=== PATIENT | male | born 1960 | race Native Hawaiian/Other Pacific Islander ===

== ENCOUNTER 2017-01-16 21:44 | Observation (INO) | payer OTHER ==
[~2017-01-16] VITALS: Ht 170.2 cm; Wt 70.5 kg
[2017-01-16 22:04] VITALS: BP 139/79; TEMP 98.6
[2017-01-16 23:01] LABS: PLATELET COUNT 325 K/uL (142-355)
[2017-01-16 23:09] LABS: POTASSIUM 3.7 mmol/L (3.6-5.2); SODIUM 136 mmol/L (136-145)
[2017-01-17 01:02] VITALS: BP 117/65; TEMP 98.4; Ht 170.2 cm; Wt 70.5 kg
[2017-01-17 04:00] VITALS: BP 109/66; TEMP 97.9
[2017-01-17 08:00] VITALS: BP 112/68; TEMP 97.3
[2017-01-17 12:00] VITALS: BP 111/68; TEMP 97.5
[2017-01-17 16:00] VITALS: BP 106/64; TEMP 97.4
[2017-01-17 20:00] VITALS: BP 115/53; TEMP 97.5
[2017-01-18 00:05] VITALS: BP 117/60; TEMP 97.5
--- NOTE | 2017-01-18 03:07 | NUR ---
01/18/17 0300 PT C/O OF INDIGESTION MEDICATION GIVEN ALSO MEDICATION GIVEN FOR COUGH.CC
[2017-01-18 04:00] VITALS: BP 109/69; TEMP 97.5
[2017-01-18 05:40] LABS: POTASSIUM 4.4 mmol/L (3.6-5.2); SODIUM 135 mmol/L (136-145)
[2017-01-18 06:09] LABS: PLATELET COUNT 295 K/uL (142-355)
[2017-01-18 08:00] VITALS: BP 111/60; TEMP 97.9
[2017-01-18 12:00] VITALS: BP 109/68; TEMP 97.9
[2017-01-18 16:00] VITALS: BP 118/66; TEMP 97.7
--- NOTE | 2017-01-18 16:05 | NUR ---
@ 1522 PT C/O NAUSEA AND INDIGESTION, ZOFRAN 4MG PO GIVEN. @ 1600 PT RESTING QUIETLY WITHOUT C/O, NAD NOTED
[2017-01-18 20:00] VITALS: BP 137/67; TEMP 97
[2017-01-19] VITALS: BP 139/70; TEMP 97
[2017-01-19 04:00] VITALS: BP 125/78; TEMP 97.8
[2017-01-19 05:19] LABS: PLATELET COUNT 320 K/uL (142-355)
[2017-01-19 05:34] LABS: POTASSIUM 5.1 mmol/L (3.6-5.2); SODIUM 140 mmol/L (136-145)
[2017-01-19 08:00] VITALS: BP 120/76; TEMP 98.6
[2017-01-19 12:00] VITALS: BP 121/75; TEMP 98
--- NOTE | 2017-01-19 16:02 | NUR ---
PT DISCHARGED TO HOME WITH FAMILY, DISCHARGE INSTRUCTIONS AND PRESCRIPTIONS GIVEN TO PATIENT, IV D/C'D TIP INTACT, NO REDNESS, SWELLING OR EDEMA NOTED, PT AMBULATED TO VEHICLE WITH FAMILY BY SIDE, NAD NOTED.
== END 2017-01-19 15:45 | disposition home or self-care (01) ==
LOC: ED 21:44 → MED/SURG 01-17 00:05
PROVIDERS: Emergency Medicine; ADMIT Emergency Medicine
DX: J44.1 Chronic obstructive pulmonary disease with (acute) exacerbation (principal); D72.828 Other elevated white blood cell count; R09.02 Hypoxemia
CPT/HCPCS: 36415; 36600; 80048; 80053; 82550; 82805; 83735; 83880; 84484; 85027; 90658; 90732; 93005; 94640; 94664; 94760; 96367; 96372; 96374; 96375; 99220; 99284; G0378; J1650; J2405; J2930

== ENCOUNTER 2017-05-26 19:34 | Observation (INO) | payer OTHER ==
[~2017-05-26] VITALS: Ht 170.2 cm; Wt 73.0 kg
[2017-05-26 19:55] VITALS: BP 129/79; TEMP 98.8
[2017-05-26 20:39] LABS: PLATELET COUNT 245 K/uL (142-355)
[2017-05-26 21:37] LABS: POTASSIUM 3.4 mmol/L (3.6-5.2); SODIUM 131 mmol/L (136-145)
[2017-05-26 22:01] VITALS: BP 114/62
[2017-05-26] MEDS ORDERED: BEVESPI AEROSPH1 AER IN (22:08)
[2017-05-26] MEDS ORDERED: BREO ELLIPTA 101 INH IN (22:09)
[2017-05-26] MEDS ORDERED: IPRASOL5 IN (22:11)
[2017-05-26] MEDS ORDERED: ALBUTERO2 IN (22:13)
[2017-05-26 23:04] VITALS: BP 110/72; TEMP 98.3; Ht 170.2 cm; Wt 73.0 kg
[2017-05-27] VITALS: BP 141/73; TEMP 97.6
[2017-05-27 04:00] VITALS: BP 123/81; TEMP 97.7
[2017-05-27 05:01] LABS: PLATELET COUNT 201 K/uL (142-355); POTASSIUM 3.6 mmol/L (3.6-5.2); SODIUM 133 mmol/L (136-145)
[2017-05-27 07:55] VITALS: BP 120/75; TEMP 98
[2017-05-27 11:59] VITALS: BP 129/81; TEMP 97.6
[2017-05-27 16:00] VITALS: BP 139/71; TEMP 97.7
[2017-05-27 20:20] VITALS: BP 128/60; TEMP 98.5
[2017-05-28] VITALS: BP 127/85; TEMP 97.5
[2017-05-28 04:00] VITALS: BP 131/81; TEMP 97.6
[2017-05-28 05:33] LABS: PLATELET COUNT 211 K/uL (142-355)
[2017-05-28 05:46] LABS: POTASSIUM 3.7 mmol/L (3.6-5.2); SODIUM 134 mmol/L (136-145)
[2017-05-28 08:00] VITALS: BP 126/80; TEMP 97.5
== END 2017-05-28 10:37 | disposition home or self-care (01) ==
LOC: ED 19:34 → MED/SURG 22:03
PROVIDERS: Emergency Medicine; ADMIT Specialist
DX: J44.1 Chronic obstructive pulmonary disease with (acute) exacerbation (principal)
CPT/HCPCS: 36415; 36600; 80048; 80053; 82550; 82805; 83735; 83880; 84484; 85027; 85379; 94640; 94664; 94760; 96367; 96372; 96374; 96375; 99220; 99284; G0378; J1644; J1956; J2930; Q9963

== ENCOUNTER 2022-05-27 10:38 | Emergency (ER) | payer OTHER ==
[~2022-05-27] VITALS: Ht 167.6 cm; Wt 66.2 kg
[~2022-05-27 10:38] MED LIST: ALBUTERO2 IN; BEVESPI AEROSPH1 AER IN; BREO ELLIPTA 101 INH IN; IPRASOL5 IN
[2022-05-27 10:42] VITALS: TEMP 98.5
[2022-05-27 11:40] LABS: PLATELET COUNT 208 K/uL (142-355)
[2022-05-27 11:48] LABS: POTASSIUM 3.8 mmol/L (3.6-5.2)
[2022-05-27 13:00] VITALS: BP 132/72
== END 2022-05-27 13:30 | disposition short-term general hospital (02) ==
LOC: ED 10:38
PROVIDERS: Emergency Medicine Emergency Medical Services
DX: I21.4 Non-ST elevation (NSTEMI) myocardial infarction (principal); J44.1 Chronic obstructive pulmonary disease with (acute) exacerbation; I10 Essential (primary) hypertension; F17.210 Nicotine dependence, cigarettes, uncomplicated; Z11.52 Encounter for screening for COVID-19
CPT/HCPCS: 36415; 36600; 80053; 82805; 83735; 84484; 85027; 85379; 85610; 85730; 87040; 87502; 87635; 93005; 94664; 96360; 96365; 96366; 96375; 99284; J0696; J1644; J2930; U0003